=== PATIENT | male | born 1990 | race American Indian/Alaskan Native ===

== ENCOUNTER 2020-05-16 22:34 | Emergency (ER) | payer SELFPAY ==
[2020-05-17] MEDS ORDERED: ACETAMINOPHEN 500 MG TAB PO ONE (02:01)
[2020-05-17] MEDS ORDERED: ONDANSETRON 4 MG ODT TAB PO ONE (02:01)
[2020-05-17] MEDS ORDERED: IBUPROFEN 600 MG TAB PO ONE (02:01)
[2020-05-17] MEDS ORDERED: SULFAMETHOXAZOLE/TRIMETHOPRIM 800/160MG DS TAB PO ONE (02:01)
--- NOTE | 2020-05-17 02:24 | Emergency Department Report ---
ED General Adult HPI - General Chief complaint: Wound/Laceration Stated complaint: SPIDER BITE LEFT KNEE Source: patient Mode of arrival: Ambulatory Limitations: No Limitations - History of Present Illness Initial comments: Patient is a 30-year-old -[place] male with no past medical history who presents to the ED with complaint of acute onset persistent painful swollen mild erythematous maculopapular rash on left lateral knee after being bitten by unknown insect about 5 days ago. Patient states that the pain and swelling of worsened in the last 2 days. Patient states that the pain is worse especially with ambulation or palpation of the area. Patient denies fever, chills, nausea, vomiting, traumatic injury, fall, numbness and tingling or weakness of left leg, chest pain or shortness of breath. MD Complaint: Swollen painful erythematous rash on left knee -: Sudden, days(s) (5) Location: lower extremity (Left lateral knee) Radiation: non-radiation Severity scale (0 -10): 6 Quality: aching, sharp Consistency: constant Improves with: none Worsens with: movement Associated Symptoms: denies other symptoms, rash (Swollen erythematous maculopapular nonfluctuant rash on left lateral knee). denies: confusion, cough, diaphoresis, fever/chills, headaches, loss of appetite, malaise, nausea/vomiting, seizure, shortness of breath, syncope, weakness Treatments Prior to Arrival: none - Related Data Previous Rx's Medication Instructions Recorded Last Taken Type Ibuprofen [Motrin] 800 mg PO Q8HR PRN #30 tablet 05/17/20 Unknown Rx Sulfamethoxazole/Trimethoprim 1 each PO Q12H #20 tablet 05/17/20 Unknown Rx [Bactrim DS TAB] Allergies Allergy/AdvReac Type Severity Reaction Status Date / Time No Known Allergies Allergy Unverified 05/17/20 00:07 ED Review of Systems ROS: Stated complaint: SPIDER BITE LEFT KNEE Other details as noted in HPI Constitutional: denies: chills, fever Eyes: denies: eye pain, eye discharge, vision change ENT: denies: ear pain, throat pain Respiratory: denies: cough, shortness of breath, wheezing Cardiovascular: denies: chest pain, palpitations Endocrine: no symptoms reported Gastrointestinal: denies: abdominal pain, nausea, diarrhea Genitourinary: denies: urgency, dysuria Musculoskeletal: arthralgia (Painful left knee due to erythematous maculopapular nonfluctuant rash). denies: back pain, joint swelling Skin: rash (Erythematous maculopapular nonfluctuant rash on left lateral knee with localized pain), change in color. denies: lesions Neurological: denies: headache, weakness, paresthesias Psychiatric: denies: anxiety, depression Hematological/Lymphatic: denies: easy bleeding, easy bruising ED Past Medical Hx - Past Medical History Previous Medical History?: No - Surgical History Past Surgical History?: Yes Additional Surgical History: hernia - Social History Smoking Status: Current Every Day Smoker Substance Use Type: Alcohol, Marijuana - Medications Home Medications: Home Medications Medication Instructions Recorded Confirmed Last Taken Type Ibuprofen [Motrin] 800 mg PO Q8HR PRN #30 tablet 05/17/20 Unknown Rx Sulfamethoxazole/Trimethoprim 1 each PO Q12H #20 tablet 05/17/20 Unknown Rx [Bactrim DS TAB] ED Physical Exam - General Limitations: No Limitations General appearance: alert, in no apparent distress - Head Head exam: Present: atraumatic, normocephalic, normal inspection - Eye Eye exam: Present: normal appearance, PERRL, EOMI Pupils: Present: normal accommodation - ENT ENT exam: Present: normal exam, normal orophraynx, mucous membranes moist, TM's normal bilaterally, normal external ear exam - Neck Neck exam: Present: normal inspection, full ROM - Respiratory Respiratory exam: Present: normal lung sounds bilaterally. Absent: respiratory distress, wheezes, rales, stridor, chest wall tenderness, accessory muscle use, decreased breath sounds, prolonged expiratory - Cardiovascular Cardiovascular Exam: Present: regular rate, normal rhythm, normal heart sounds. Absent: systolic murmur, diastolic murmur, rubs, gallop - GI/Abdominal GI/Abdominal exam: Present: soft, normal bowel sounds. Absent: tenderness, guarding, rebound, hyperactive bowel sounds, organomegaly - Extremities Exam Extremities exam: Present: normal inspection, full ROM, tenderness (Palpable localized left knee tenderness due to erythematous maculopapular rash on lateral left knee), normal capillary refill, joint swelling - Back Exam Back exam: Present: normal inspection, full ROM. Absent: tenderness, CVA tenderness (R), CVA tenderness (L), muscle spasm, paraspinal tenderness, vertebral tenderness - Neurological Exam Neurological exam: Present: alert, oriented X3, CN II-XII intact, normal gait, reflexes normal - Psychiatric Psychiatric exam: Present: normal affect, normal mood - Skin Skin exam: Present: warm, dry, intact, rash (Erythematous maculopapular nonfluctuant rash on left lateral knee with localized tenderness), erythema ED Course Vital Signs 05/17/20 00:07 Temperature 98.0 F Pulse Rate 79 Respiratory 18 Rate Blood Pressure 105/78 O2 Sat by Pulse 100 Oximetry ED Medical Decision Making - Medical Decision Making This is a 30-year-old -[place] male with no past medical history who presents to the ED with complaint of acute onset persistent painful swollen mild erythematous maculopapular rash on left lateral knee after being bitten by unknown insect about 5 days ago. Patient states that the pain and swelling of worsened in the last 2 days. Patient states that the pain is worse especially with ambulation or palpation of the area. In the ED, patient is alert and oriented x3 and is not in distress. Patient was treated for pain in the ED and was given initial oral antibiotics in the ED. On reevaluation, patient's pain is well controlled medications. Patient is fully ambulatory in the ED with no difficulties. Patient was discharged home on pain medications and oral antibiot ics, and was advised to follow-up with his primary care physician in 7 to 10 days for reevaluation return to the ED immediately if symptoms get worse. - Differential Diagnosis Cellulitis; infected puncture wound; insect bite infected Critical care attestation.: If time is entered above; I have spent that time in minutes in the direct care of this critically ill patient, excluding procedure time. ED Disposition Clinical Impression: Infected wound of left knee due to nonvenomous insect bite, Cellulitis of left knee Disposition: DC-01 TO HOME OR SELFCARE Is pt being admited?: No Does the pt Need Aspirin: No Condition: Stable Instructions: Insect Bite, Adult, [id number], Cellulitis, Adult, [id number] Additional Instructions: Take medication with food, drink plenty of fluids and follow-up with your primary care physician in 7 to 10 days for reevaluation. Return to the ED immediately if symptoms get worse. Prescriptions: Sulfamethoxazole/Trimethoprim [Bactrim DS TAB] 1 each PO Q12H #20 tablet Ibuprofen [Motrin] 800 mg PO Q8HR PRN #30 tablet PRN Reason: Pain , Severe (7-10) Referrals: [facility] [Provider Group] - 7-10 days Time of Disposition: 02:22 Print Language: [place]
[2020-05-17 03:30] VITALS: BP 118/80
== END 2020-05-17 03:00 | disposition home or self-care (01) ==
LOC: ED 22:34
DX: S80.262A Insect bite (nonvenomous), left knee, initial encounter (principal); L03.116 Cellulitis of left lower limb; F17.200 Nicotine dependence, unspecified, uncomplicated; F12.90 Cannabis use, unspecified, uncomplicated; Z79.899 Other long term (current) drug therapy; Z98.890 Other specified postprocedural states; W57.XXXA Bitten or stung by nonvenomous insect and other nonvenomous arthropods, initial encounter; Y93.89 Activity, other specified; Y92.89 Other specified places as the place of occurrence of the external cause; Y99.8 Other external cause status
CPT/HCPCS: 99282; Q0162